=== PATIENT | male | born 1995 | race Two or more races ===

== ENCOUNTER 2025-02-15 14:15 | Outpatient (CLI) | payer OTHER ==
[2025-02-15 14:57] LABS: Hematocrit 46.5 % (41.0-53.0); Hemoglobin 16.5 g/dL (13.5-17.5); Mean Corpuscular Hemoglobin 31.5 pg (28.0-32.0); Mean Corpuscular Volume 88.9 fL (80.0-100.0); Nucleated Red Blood Cells % 0.0 %
[2025-02-15 15:26] LABS: Alanine Aminotransferase 29 U/L (7-40); Albumin 4.6 g/dL (3.2-4.8); Alkaline Phosphatase 96 U/L (46-116); Anion Gap 7 (5-15); BUN/Creatinine Ratio 10.6 (10.0-20.0); Blood Urea Nitrogen 9 mg/dL (9-23); Calcium 9.4 mg/dL (8.7-10.4); Carbon Dioxide 27 mmol/L (20-31); Chloride 105 mmol/L (98-107); Potassium 3.9 mmol/L (3.5-5.1); Sodium 139 mmol/L (136-145); Total Protein 7.5 g/dL (5.7-8.2)
[2025-02-15 15:27] LABS: Bilirubin, Total 0.6 mg/dL (0.2-1.0)
[2025-02-15 15:40] LABS: Glucose 110 mg/dL (74-106)
== END 2025-02-15 17:00 | disposition home or self-care (01) ==
LOC: LAB 14:15
PROVIDERS: ATTEND Nurse Practitioner
DX: Z77.120 Contact with and (suspected) exposure to mold (toxic) (principal)
CPT/HCPCS: 36415; 80053; 85025